=== PATIENT | female | born 1955 | race American Indian/Alaskan Native ===

== ENCOUNTER 2025-07-31 06:57 | Emergency (ER) | payer MEDICARE, SELFPAY ==
--- NOTE | ~2025-07-31 | XR_ITS ---
EXAMINATION: XR WRIST, RIGHT CLINICAL INFORMATION: FELL, INJURED R WRIST COMPARISON: None available. TECHNIQUE: PA, lateral, and oblique views of the right wrist. FINDINGS: There is a transverse oriented comminuted cortical disruption with volume loss centered in the distal metaphysis of the radius. No extension into the articular surface. Degenerative changes in the radiocarpal joints and first carpometacarpal joints. No metallic or radiopaque foreign body. No lytic or blastic lesions. No subcutaneous emphysema. XR/XR wrist RT min 3V IMPRESSION: Comminuted impacted fracture distal metaphysis of the right radius. Electronically signed by: Sergio Robbins MD 07/31/2025 07:42 AM EST
[2025-07-31 07:06] VITALS: BP 220/110; PULSE 96; RESP 18; O2SAT 96; BMI 28.3
--- NOTE | 2025-07-31 07:39 | ED.EXTPRO ---
HPI - Extremity Problem General Chief complaint: Extremity Injury, Upper Stated complaint: Injury Time Seen by Provider: 07/31/25 07:14 Source: patient Mode of arrival: ambulatory Limitations: no limitations History of Present Illness HPI Narrative: This is a 69 years old the patient presented to the emergency department with a chief complaint of right wrist pain she tripped and fell she is complaining of the pain in the right wrist, she fell last night she was walking the dog, no other injury no head injury no neck injury MD Complaint: extremity pain Onset (ago): day(s) (1) Pain Consistency: constant Location: right and upper extremity (wrist) Quality: aching Radiation: none Related Data Previous Rx's ?Medication ?Instructions ?Recorded oxycodone 5 mg tablet 5 mg PO Q6H PRN pain #15 tabs 07/31/25 oxycodone 5 mg tablet 5 mg PO Q6H PRN pain #15 tabs 07/31/25 Allergies Allergy/AdvReac Type Severity Reaction Status Date / Time No Known Allergies Allergy Verified 07/31/25 07:09 Review of Systems Constitutional: Constitutional: Reports no additional constitutional complaints Cardiovascular: Cardiovascular: Reports no additional cardiovascular complaints [facility] Past Medical History Attestation statement: The following information was validated with the patient. Social History Social History Smoked in Last 30 Days: Yes Use of substances other than those prescribed or required for medical reasons: No Advance Directives: No Advance Directives Information Provided: Yes Do you have a plan to hurt others: No Plan Physical Exam Exam: Exam: No acute distress Vital Signs: Vital Signs: Last Vital Signs Temp 98.2 F 07/31/25 08:05 Pulse 94 07/31/25 08:05 Resp 16 07/31/25 08:05 BP 180/90 H 07/31/25 08:05 Pulse Ox 96 07/31/25 08:05 O2 Del Method Room Air 07/31/25 08:05 BMI result Body Mass Index 28.3 Vital signs reviewed hypertension noted Const: General: cooperative Nutritional Appearance: well nourished Orientation/consciousness: patient oriented x3 HEENT: Head: Yes normal to inspection General nose exam: Normal external nose present Neck: Neck: Yes normal visual inspection Chest: Chest palpation & inspection: normal inspection of the chest Resp: Effort & Inspection: normal respiratory effort Auscultation: clear to auscultation bilaterally Cardio: Jugular venous distension: no JVD Rate: regular rate Rhythm: regular rhythm GI: Inspection: Yes normal to inspection Palpation (GI): Soft to palpation, not firm and nontender Auscultation: normal bowel sounds Skin: General skin exam: no rashes or lesions noted and elasticity normal Neuro: General: patient oriented x3 Cranial nerves: Yes CN's II-XII intact bilaterally Extrem: Other: She has tenderness swelling in the right wrist decreased range of motion Course Reevaluation(s) Reevaluation #1: first prescription for oxycodone did not go throught I sent another one Medications Administered Discontinued Medications Generic Name Dose Route Start Last Admin Trade Name Freq PRN Reason Stop Dose Admin Acetaminophen 975 mg 07/31/25 07:48 07/31/25 07:52 Acetaminophen 325 Mg Tablet PO 07/31/25 07:49 975 mg ONCE ONE Administration Oxycodone HCl 5 mg 07/31/25 07:48 07/31/25 07:52 Oxycodone Hcl Immed Release 5 Mg Tablet PO 07/31/25 07:49 5 mg ONCE ONE Administration Medical Decision Making Medical Decision Making MDM Narrative: Patient presented after a fall last night complaining of right wrist pain we will obtain imaging Differential Diagnosis Differential Diagnoses: The differential diagnosis associated with the presentation includes Wrist fracture/dislocation/ Admission/Observation Consideration of admission/observation: Escalation of care including admission/observation considered Independent Interpretation I performed an independent interpretation of an: Plain X-Ray Interpretation: X-ray was reviewed interpreted by me as distal radius fracture Procedures Orthopedic Splinting/Casting wrist fx: Side: right Upper Extremity Injury Location: upper arm (rt wrist) Upper Extremity Immobilizer: sugar tong splint Additional Comments: I placed OCL splint sugar tongue rt wrist Discharge Plan Discharge Clinical Impression: Fracture of distal end of radius Patient Disposition: Home, Self-Care Instructions: Wrist Fracture in Adults (ED) Additional Instructions: Keep your splint on, follow-up with orthopedic call and make an appointment, Prescriptions: New oxycodone 5 mg tablet 5 mg PO Q6H PRN (Reason: pain) Qty: 15 0RF Rx Instructions: partial filing upon pt request; Partial Fill upon patient request. oxycodone 5 mg tablet 5 mg PO Q6H PRN (Reason: pain) Qty: 15 0RF Rx Instructions: partial filing upon pt request; Partial Fill upon patient request. Referrals: Leonel Walter MD [Physician, Orthopedics] - 08/04/25 Interventions: ED Discharge Assessment Last Done: 07/31/25 08:05 Discharge Date/Time: 07/31/25 08:09 Print Language: Danish
[2025-07-31 07:42] VITALS: BP 180/90; PULSE 94; RESP 16; TEMP 36.8; O2SAT 96
[2025-07-31] MEDS: oxyCODONE HCl Immed Release 5 MG TABLET PO (07:52)
--- OUTSIDE RECORDS SUMMARY | 2025-07-31 07:58 | XMS_ITS | Patient Health Record ---
[facility] Address [address] [place] [id number] Care Team Providers Care Mortgage Sales Manager Name Role Phone Bassem Christine Jr [phone] Reason For Referral No Information Plan Of Treatment No Information
--- OUTSIDE RECORDS SUMMARY | 2025-07-31 07:58 | XMS_ITS | Clinical Summary ---
Author Organization [facility] Address [address] [place] [id number] Phone Care Team Providers Care Sports Athletic Trainer Name Role Phone Rosana Lamas LEGAL TECHNICIAN Unavailable [phone] Pcp, Unknown Primary Care Provider Unavailabl e Allergies No known active allergies Medications ibuprofen (ADVIL,MOTRIN) 200 MG tablet Take 600 mg by mouth 5 (five) times a day. Active cyclobenzaprine (FLEXERIL) 5 MG tablet TAKE 1 TABLET (5 MG TOTAL) BY MOUTH 3 (THREE) TIMES A DAY NEEDED FOR MUSCLE SPASMS. 21 tablet 10/30/2017 Active Immunizations Immunization Administration Dates Next Due COVID-19 (Pre-07/09) Pfizer Vaccine, mRNA, PF ,01/17/2021 INFLUENZA, SPLIT VIRUS, TRIVALENT W/ PRESERVATIV E IM 06/24/2014 Influenza trivalent preservative free intraderma l 06/27/2013 Family History Medical History Relation Comments Stroke Father 2 Diabetes mellitus Sibling 3 Stroke Sibling 3 Relation Status Comments Father 1 Father 2 Sibling 1 Sibling 2 Sibling 3 Social History Tobacco Use Types Packs/Day Years Used Date Smoking Tobacco: Every Day Cigarettes Smokeless Tobacco: Never Alcohol Use Standard Drinks/Week Comments Yes 0 (1 standard drink = 0.6 oz pur e alcohol) weekends Education Answer Date Recorded Are you interested in more education? Not on rose e 01/12/2023 Are you concerned about learning? Not on file 01/12/2023 No 01/12/2023 No 01/12/2023 Digital Access Answer Date Recorded No 02/10/2023 No 02/10/2023 Reliable internet access at home? Not on file 02/10/2023 Device with a working camera? Not on file Comments Unknown Sex and Gender Information Value Date Recorded Sex Assigned at Not on file Legal Sex Female 9:55 PM EDT Gender Identity Not on file Sexual Orientation Not on file Last Filed Vital Signs Vital Sign Reading Time Taken Comments Blood Pressure 148/74 10/16/2017 1:56 PM EST Pulse 84 10/16/2017 1:56 PM EST Temperature 36.7 C (98 F) 01/19/2017 10:52 AM EDT Respiratory Rate 16 10/16/2017 1:56 PM EST Oxygen Saturation 97% 10/16/2017 1:56 PM EST Inhaled Oxygen Concentration - - Weight 73.3 kg (161 lb 9.6 oz) 10/16/2017 1:56 P M EST Height 161.3 cm (5' 3.5 ) 10/16/2017 1:56 PM EST Body Mass Index 28.18 10/16/2017 1:56 PM EST Plan of Treatment Health Maintenance Due Date Last Done Comments Adult Td,Tdap Booster 1955 LIPID PANEL 1955 DEPRESSION SCREENING 1967 SMOKING Hx and SMOKELESS TOBACCO SCREENING 1968 HEPATITIS C SCREENING 1973 PNEUMOCOCCAL VACCINES (50+ years) (1 of 2 - PCV) 1974 MAMMOGRAM 1995 COLOGUARD 2000 COLONOSCOPY 2000 COLORECTAL CANCER SCREENING 2000 FIT TEST 2000 FOBT 2000 SIGMOIDOSCOPY 2000 VIRTUAL COLONOSCOPY 2000 ZOSTER VACCINES (1 of 2) 2005 OSTEOPOROSIS SCREENING INITI AL (ONE-TIME) 2020 INFLUENZA VACCINE (#1) 2025 4, 06/27/2013 COVID-19 VACCINE (3 - 2024-2 6 season) 2025 02/07/2021, 01/17/2021 RSV VACCINE (1 - 1-dose 75+ series) 2030 HEPATITIS A VACCINES Aged Out No long er eligible based on patient's age to complete this topic HIB VACCINES Aged Out No longer eligi ble based on patient's age to complete this topic IPV VACCINES Aged Out No longer eligi ble based on patient's age to complete this topic MENINGOCOCCAL VACCINES (ACWY) Aged Out No longer eligible based on patient's age to complete this topic MENINGOCOCCAL VACCINES (B) Aged Out N o longer eligible based on patient's age to complete this topic Medical Devices Not on file Insurance [employer] [facility] TOTAL CHOICE INDEMNITY [place] [employer] [facility] TOTAL CHOICE INDEMNITY [employer] [facility] TOTAL CHOICE INDEMNITY [place] [employer] CHO[employer] INDEMNITY [place] TOTAL CHOICE INDEMNITY [address] [place], [place] [address] [facility] TOTAL CHOICE INDEMNITY [address] [place], [place] [address] [facility] TOTAL CHOICE INDEMNITY Care Teams Sports Athletic Trainer Relationship Specialty Start Date End Date Pcp, Unknown PCP - General 04/28/21 Rosana Lamas NP [email or web address] Historical LMR Provider 07/03/17 Additional Source Comments The information contained in this document represents components of the legal health record. It is not the complete legal health record.[facility]
[2025-07-31 08:05] VITALS: BP 180/90; PULSE 94; RESP 16; TEMP 36.8; O2SAT 96
--- NOTE | 2025-07-31 08:10 | PC.NURSE ---
Patient presented to Ed after fall c/o right wrist pain rated 10/10 +CMS limited ROM Patient was walking dog when she tripped on the curb and stuck her right arm out to catch her fall Xray confirms distal radius fx in right wrist Patient medicated with oxy and tylenol per MAR Provider soft casted right wrist and sling applied Patient up for discharge has follow up with ortho
== END 2025-07-31 08:09 | disposition home or self-care (01) ==
PROVIDERS: Emergency Provider Emergency Medicine
DX: S52.501A Unspecified fracture of the lower end of right radius, initial encounter for closed fracture (principal); W18.30XA Fall on same level, unspecified, initial encounter; Y93.9 Activity, unspecified; Y92.9 Unspecified place or not applicable; Y99.9 Unspecified external cause status; M25.531 Pain in right wrist
CPT/HCPCS: 73110; 99283; 99284

== ENCOUNTER → 2025-07-31 07:38 | Outpatient (BNV) | payer MEDICARE, SELFPAY | PROVIDERS: Emergency Provider Emergency Medicine; Visit Provider Radiology Diagnostic Radiology | DX: M25.532 Pain in left wrist (principal) | CPT/HCPCS: 73110 ==

== ENCOUNTER 2025-08-04 13:06 | Outpatient (REF) | payer MEDICARE, SELFPAY ==
--- NOTE | ~2025-08-04 | XR_ITS ---
EXAMINATION: XR WRIST, LEFT CLINICAL INFORMATION: M25.532 - Pain in left wrist COMPARISON: None available. TECHNIQUE: PA, lateral, and oblique views of the left wrist. FINDINGS: There is diffuse osteopenia. There is subtle lucency along the articular surface of the distal radius proximal to the scaphoid side of lunate. There is scapholunate interval widening. There are no other abnormalities. XR/XR wrist LT min 3V IMPRESSION: There is subtle lucency in the distal radial subchondral bone proximal to the scaphoid side of lunate could be related to combination of trabecular pattern and osteopenia. Correlate for history that could suggest a fracture. Scapholunate interval widening raises concern of the scapholunate ligament tear. Electronically signed by: David Coombs MD 08/04/2025 02:45 PM [facility]
--- NOTE | ~2025-08-04 | XR_ITS ---
EXAMINATION: XR WRIST, RIGHT CLINICAL INFORMATION: M25.531 - Pain in right wrist , follow-up fracture COMPARISON: X-ray from 4 days earlier TECHNIQUE: PA, lateral, and oblique views of the right wrist. FINDINGS: Again seen is transverse fracture across the distal metaphysis of the right radius with buckling of the cortex and extension into the proximal end of the distal radioulnar joint and ulnar side of the distal radial articular surface. There is increasing diffuse osteopenia. There is no change in alignment. XR/XR wrist RT min 3V IMPRESSION: Developing disuse osteopenia and otherwise stable distal right radial fracture. Electronically signed by: David Coombs MD 08/04/2025 02:39 PM [facility]
--- OUTSIDE RECORDS SUMMARY | 2025-08-05 11:25 | XMS_ITS | Clinical Summary ---
Author Organization [facility] Address [address] [place] [id number] Phone Care Team Providers Care Clam Sorter Name Role Phone Rosana Lamas CIGARETTE PACKAGE EXAMINER Unavailable [phone] Pcp, Unknown Primary Care Provider Unavailabl e [...] topic Medical Devices Not on file Insurance [employer] [facility] TOTAL CHOICE INDEMNITY [employer] CHO[employer]OTAL [employer]OTAL CHOICE INDEMNITY [address] [place], [place] [address] [facility] TOTAL CHOICE INDEMNITY Care Teams Clam Sorter Relationship Specialty Start Date End Date Pcp, Unknown PCP - General 04/28/21 Rosana Lamas NP Historical LMR Provider 07/03/17 Additional Source Comments The information contained in this document represents components of the legal health record. It is not the complete legal health record.[facility]
--- OUTSIDE RECORDS SUMMARY | 2025-08-05 11:26 | XMS_ITS ---
Author Organization Unknown ENCOUNTERS Encounter Performer Location Date Diagnosis Diagnosis Status Pre Admit [facility] ED Physician [address] [phone] *Note: Encounters from your own facility or health system may be excluded. Allergies, Adverse Reactions, Alerts Allergen Type Severity Identification Date Medications Name Date Quantity Days Supplied GPI Number
--- OUTSIDE RECORDS SUMMARY | 2025-08-05 11:26 | XMS_ITS | Patient Health Record ---
Author Organization [facility] Address [address] [place] [id number] Care Team Providers Care Gold Nib Grinder Name Role Phone Bassem Christine Jr Reason For Referral No Information Plan Of Treatment No Information
== END 2025-08-04 13:07 | disposition home or self-care (01) ==
LOC: HO.HOSX 13:06
PROVIDERS: Visit Provider Orthopaedic Surgery
DX: S62.101A Fracture of unspecified carpal bone, right wrist, initial encounter for closed fracture (principal); S62.102A Fracture of unspecified carpal bone, left wrist, initial encounter for closed fracture; S52.501A Unspecified fracture of the lower end of right radius, initial encounter for closed fracture; S52.502A Unspecified fracture of the lower end of left radius, initial encounter for closed fracture; W01.0XXA Fall on same level from slipping, tripping and stumbling without subsequent striking against object, initial encounter; Y93.K1 Activity, walking an animal
CPT/HCPCS: 73110; 99202

== ENCOUNTER 2025-08-04 13:06 | Outpatient (AMB) | payer MEDICARE, SELFPAY ==
[2025-08-04 13:53] VITALS: BMI 28.3
--- NOTE | 2025-08-04 13:53 | MHC.OFFVIS ---
Vital Signs 08/04/25 13:53 Height 5 ft 4 in Weight 165 lb BMI 28.3 Intake Visit Reasons: ED f/u Fracture of distal end of radius Intake Note: Mary 69 yr old right hand dominant female who is retired, presents today with her Minh, for a fracture care visit for her right wrist pain. Patient seen in [facility] ED on 07/30/25, she tripped and fell in her apartment parking lot while walking her dog. Seen in ED the following day due to increase pain and swelling. Xrays were taken and a fracture was confirmed. Patient was splinted and referred to orthopedics hand surgeon for further evaluation. Patient denies numbness or tingling. Patient also mentioned she is now having increase pain in her left wrist. Allergies No Known Allergies Allergy (Verified 08/04/25 14:05) [facility] ED f/u Fracture of distal end of radius: Details: Mary 69 yr old right hand dominant female who is retired, presents today with her Minh, for a fracture care visit for her right wrist pain. Patient seen in [facility] ED on 07/30/25, she tripped and fell in her apartment parking lot while walking her dog. She also fell onto her left wrist and complains of left wrist pain today. The Patient denies numbness or tingling. She is seen today with her She is a smoker [facility] Social History (Updated 08/04/25 @ 14:07 by Vane Hdez [facility] Patient Tobacco Use Status: Current everyday Tobacco user Tobacco use type: Cigarette Cigarettes Per Day: 1 Years Smoked: 40 Current occupational status: retired Current occupation: right hand Physical Exam Vital Signs: BMI result Body Mass Index 28.3 Const General: cooperative, healthy appearing and no acute distress Orientation/consciousness: oriented to person and oriented to place HEENT Head: Yes normocephalic and Yes atraumatic Eyes EOM: EOMs intact bilaterally Resp Effort & Inspection: normal respiratory effort and able to speak in complete sentences Cardio Jugular venous distension: no JVD Skin General skin exam: turgor normal Rashes: no rashes Neuro General: oriented to person and oriented to place Extrem Other: Evaluation of bilateral Upper Extremity: Neuro: Median, ulnar, radial nerves motor and sensory grossly intact. Bilaterally. Vascular: Cap refill brisk. The right distal radius is tender to palpation. She has swelling and volar ecchymosis. No tenderness about the right elbow or to proximal forearm squeeze. She can make a weak fist and extend all of her digits. No lacerations or evidence of open fracture. The left distal radius is tender to palpation.? She has swelling and volar ecchymosis.? No tenderness about the right elbow or to proximal forearm squeeze.? She can make a weak fist and extend all of her digits.? No lacerations or evidence of open fracture. Radiographs: Three views of bilateral wrists were taken today and reviewed by me today in clinic. Right wrist: She has a transverse metaphyseal fracture of the right distal radius. On the lateral she has got about a 10-11 degree apex volar deformity seen on the lateral view. Left wrist: She has a minimally displaced left distal radius fracture. There is a fracture line extending from the distal radial articular surface at the lunate facet that then extends transversely to the lower radial styloid. No displacement on the PA view. On the lateral we see some mild dorsal comminution with about 2 degrees of dorsal tilt of the articular surface on the lateral Psych Appearance: grossly normal Affect: normal affect Attitude: cooperative Office Procedures AMB Fracture Care Details: Fracture care for the left, I repeat left distal radius [id number] She also has a right distal radius fracture which will be going to surgery. A mentioning this here so that there is no confusion about billing for the left for non operative treatment and then the right for operative treatment. Thank you Fracture Billing Code: Fracture Billing Code Assessment & Plan Assessment & Plan (1) Wrist fracture, bilateral: Code(s): S62.101A - Fracture of unspecified carpal bone, right wrist, initial encounter for closed fracture; S62.102A - Fracture of unspecified carpal bone, left wrist, initial encounter for closed fracture Category: Medical Plan 1. Right distal radius fracture, displaced Date of injury 07/31/2025 after fall while dog walking I educated the patient about this injury We discussed operative and non operative treatment options and I am recommending surgery. The patient agrees that she wishes to have surgery. The risks and benefits of operative treatment were discussed with the patient and the patient wishes to proceed with surgery. These risks include, but are not limited to risk of damage to blood vessels, nerves, tendons, infection, recurrence, incomplete relief of preoperative symptoms, persistent pain, possible need for further surgery and the risks associated with regional blocks and anesthesia. The plan is to take the patient to the operating room early next week for the following procedures: 1. Right distal radius open reduction internal fixation 2. [ ] All of the preoperative paperwork including the consent was filled out today. All the patient's questions were answered. The patient understands that they will be contacted by our materials scheduler soon to schedule this procedure She was placed in a right fiberglass splint. She denies having any heart lung kidney problems asthma or diabetes.? She is a smoker. 2. Left distal radius fracture, minimally displaced Date of injury 07/31/2025 after a fall while dog walking I educated her about this injury We discussed operative and non operative treatment options. I am hopeful that we can treat this non operatively. Because she is having surgery on the right wrist I am going to try to place this in a left Velcro wrist splint. I talked about the importance of activity modification and not doing anything heavy at all with the left hand, as that would risk further displacement and possible need for surgery. She may remove the left wrist splint for showering We will need follow up radiographs on this wrist in a week or 2. Scribed for Cecilia Joseph MD by Maryuri Rea medical assistant cardiology, on 08/04/2025 at 2:57 PM, EST. Orders: Orders XR wrist LT min 3V Today M25.532 - Pain in left wrist XR wrist RT min 3V Today M25.531 - Pain in right wrist Medications: Discontinued oxycodone partial filing upon pt request; Partial Fill upon patient request. Discontinued Reason: Patient Completed Course 5 mg PO Q6H PRN 15 tabs 0RF pain oxycodone partial filing upon pt request; Partial Fill upon patient request. Discontinued Reason: Patient Completed Course 5 mg PO Q6H PRN 15 tabs 0RF pain Coding Level of Care Code New Pt Level 5 (62666) Diagnoses Wrist fracture, bilateral S62.101A; S62.102A CPT Codes Fracture Care - Fracture Billing Code: Fracture Billing Code ([id number])
== END 2025-08-04 15:30 | disposition home or self-care (01) ==
LOC: HO.HOS 13:07
PROVIDERS: Visit Provider Orthopaedic Surgery
DX: S62.101A Fracture of unspecified carpal bone, right wrist, initial encounter for closed fracture (principal); S62.102A Fracture of unspecified carpal bone, left wrist, initial encounter for closed fracture
CPT/HCPCS: 99204

== ENCOUNTER → 2025-08-04 14:28 | Outpatient (BNV) | payer MEDICARE, SELFPAY | PROVIDERS: Visit Provider Radiology Diagnostic Radiology | DX: M25.532 Pain in left wrist (principal); S52.501A Unspecified fracture of the lower end of right radius, initial encounter for closed fracture; M85.841 Other specified disorders of bone density and structure, right hand | CPT/HCPCS: 73110 ==

== ENCOUNTER 2025-08-10 06:42 | Day surgery (SDC) | payer MEDICARE, SELFPAY ==
--- NOTE | 2025-08-05 09:52 | P.CONAN_ITS ---
Documented by User: Dunia Fritz NP 08/05/25 09:55 HPI - Anesthesia Eval Consult details Narrative: 69yo F for Right Radius Distal Fracture ORIF No medical hx listed. No records at [facility] or [facility] for review. No rx on external list. PMF Active Problems Active Problems: All Active Problems Wrist fracture, bilateral (Acute) Past Medical History Medical History Smoker Surgical History Surgical History Hx of spinal fusion Hx of hysterectomy Social History Social History Are you a primary patient care technician to a significant other at home: No Do you presently have visiting nurse or other home services: No Patient Tobacco Use Status: Current everyday Tobacco user Tobacco use type: Cigarette Cigarettes Per Day: 1 Years Smoked: 40 Smoked in Last 30 Days: Yes Patient Interested in Nicotine Replacement: No Substance Use Frequency: Daily Have you been hit, kicked, punched, or otherwise hurt by someone within the past year? If so, by whom?: No Are you DNR?: No Advance Directives: No Advance Directives Information Provided: Yes Current occupational status: retired Current occupation: right hand Meds Allergies Allergy/AdvReac Type Severity Reaction Status Date / Time No Known Allergies Allergy Verified 08/10/25 07:24 Assessment and Plan Assessment Anesthesia Assessment: Chart Reviewed Documented by User: Bre Calzada MD 08/10/25 07:59 [facility] Past Medical History Medical History Smoker Family History Family history of problems with anesthesia: No Surgical History Surgical History Hx of spinal fusion Hx of hysterectomy History of Problems with Anesthesia: No Social History Social History Are you a primary patient care technician to a significant other at home: No Do you presently have visiting nurse or other home services: No Patient Tobacco Use Status: Current everyday Tobacco user Tobacco use type: Cigarette Cigarettes Per Day: 1 Years Smoked: 40 Smoked in Last 30 Days: Yes Patient Interested in Nicotine Replacement: No Substance Use Frequency: Daily Have you been hit, kicked, punched, or otherwise hurt by someone within the past year? If so, by whom?: No Are you DNR?: No Advance Directives: No Advance Directives Information Provided: Yes Current occupational status: retired Current occupation: right hand [employer] Allergies Allergy/AdvReac Type Severity Reaction Status Date / Time No Known Allergies Allergy Verified 08/10/25 07:24 Exam Airway Mallampati Class: III (POOR DENTITION) TM Dist: >3cm Neck ROM: Limited Heart: RRR Lungs: CTA Assessment and Plan Assessment Anesthesia Assessment: Anesthesia Plan Discussed Final Anesthetic Review Family History of Problems with Anesthesia: No History of Problems with Anesthesia: No NPO: Yes ASA Class: II Final Preanesthetic Review: No Changes in Pt Med Stat, Meds/Allgs Chart Reviewed, Consent Obtained/Reviewed and Anes Risks/Benef Reviewed Patient Risk: Intermediate (SMOKER, WHEEZY) Procedure Risk: Low Anesthetic Plan Anesthetic Plan: GA, Regional Block and Agree w/ Assess. and Plan Disposition: Standard PACU
--- NOTE | ~2025-08-10 | FL_ITS ---
EXAMINATION: FL GUIDANCE ONLY HISTORY: radius distal fracture ORIF COMPARISON: Correlation is made to plain films of the right wrist dated 08/04/2025. TECHNIQUE: Fluoroscopy time: 50.12 seconds. Cumulative Dose: 1.4862 mGy. DAP: 0.0898 Gycm2 Images: 3. FINDINGS: Fluoroscopic spot films of the right wrist demonstrate internal fixation of the previously seen fracture of the distal radial metaphysis with a sideplate and multiple orthopedic screws. FL/FL guidance in OR IMPRESSION: Fluoroscopy during procedure. Please see procedure report for additional information. Electronically signed by: Augusto Rubalcava MD 08/10/2025 11:36 AM [facility]
[2025-08-10 07:01] VITALS: BMI 28.2
[2025-08-10 07:03] VITALS: BP 154/84; PULSE 96; RESP 18; TEMP 36.8; O2SAT 97
[2025-08-10] MEDS: Lactated Ringers 1,000 ML 100 ML IVCONT (07:06)
[2025-08-10] MEDS: Albuterol Sulfate (0.083%) 2.5 MG/3 ML VIAL.NEB INHALE (07:36)
--- NOTE | 2025-08-10 08:41 | MHC.SHP ---
Pre-Procedural Eval Section A - 24 Hr Update-Section A only Date of Service: 08/10/25 The patient is an INPATIENT: No Changes since office visit: No Cold of Flu in the past 2 weeks, No New Medical Problems, No Changes in Medication and No Patient answered all questions The patient has been examined within 24 hours of the surgical procedure. The History & Physical has been completed within 30 days and I have reviewed it.: Yes Section B - Complete if H&P > 30 days Chief Complaint: Unspecified fracture of the lower end of right Allergies: Allergies Allergy/AdvReac Type Severity Reaction Status Date / Time No Known Allergies Allergy Verified 08/10/25 07:24 Plan I have reviewed the history and physical and performed a pertinent physical examination on my patient. No changes have occurred unless specified. Time Spent With Patient Time: Total time managing care of this patient today ____ minutes.
--- NOTE | 2025-08-10 08:42 | P.OP_ITS ---
Operative Note Operative Note Date of Service: 08/10/25 Narrative: Operative Note Narrative: Preop diagnosis: 1. Right Distal radius fracture Postop diagnosis: Same Procedure: 1. Right Distal radius fracture open reduction internal fixation, extra- articular Surgeon: Cecilia Joseph MD Inspector Screen Printing: None Anesthesia: General anesthesia plus regional block Findings: Right distal radius fracture Implants: A 3 hole Accu Med volar locking plate, with 4 X 2.3 mm locking pegs/screws, and 3 3.5 mm cortical screws Tourniquet time: 34 minutes EBL: 5.0 ml Specimen: None Drains: None Complications: None Disposition: Brought to the recovery room in stable condition Plan: Follow-up in 10-14 days for wound check, suture removal and postop radiographs The patient will be placed in a volar wrist splint. Encouraged no lifting of anything heavier than a cell phone. Please encourage active and passive range of motion of the digits. Follow-up at 4-5 weeks postop for repeat radiographs. Please also remember to obtain pre clinic radiographs of the opposite wrist which is also fractured. Indications: The patient is a 69 year old woman with right distal radius fracture . The risks and benefits of operative treatment, including but not limited to risk of damage to blood vessels, nerves, tendons, infection, recurrence, persistent pain or numbness, incomplete resolution of preoperative symptoms, or need for further surgery were discussed with the patient and they wished to proceed with surgery. Procedure: Once consent was obtained patient was brought back to the operating suite and placed in the operating table in a supine position. A regional block was performed by the anesthesia team. Perioperative antibiotics and anesthesia was administered by the anesthesia team. A tourniquet was applied to the proximal aspect of the right upper extremity and the limb was prepped and draped in a standard surgical fashion. The limb was elevated exsanguinated with Esmarch bandage and the tourniquet inflated to 250 mm of mercury for a total tourniquet time of 34 minutes. The FluoroScan was used throughout the case to assess our reduction, and facilitate implant placement. A gentle closed reduction was 1st performed on the patient's right distal radius fracture. Was assessed radiographically before proceeding with the reduction internal fixation. I then made an 8 cm longitudinal incision over the distal aspect of the flexor carpi radialis tendon. The incision was made through the skin to the subcutaneous tissue using a 15. Blade. Then carefully dissected down to flexor carpi radialis tendon she tenotomy scissors. The FCR tendon sheath was then incised longitudinally using tenotomy scissors under direct visualization. The FCR tendon was then retracted ulnarly. I then made a longitudinal incision in the volar forearm fascia through the floor of FCR tendon sheath using tenotomy scissors under direct visualization. I identified the interval between the radial artery and the flexor tendons. This interval was developed further with my index finger, releasing some of the muscular fibers of the flexor pollicis longus. A dull weatlander retractor was then placed. I then created an ulnarly based flap of the pronator quadratus by releasing the radial and distal edges using a 15. Blade. A Valdivia elevator was used to elevate the pronator quadratus from the volar surface of the distal radius. This then revealed to us our distal radius fracture. An open reduction was then performed on our distal radius fracture. I then placed a short narrow 3 hole Accu Med volar locking plate on the volar surface of the distal radius. I placed a single K-wire through the distal aspect of the plate and into the distal radius. This was assessed using fluoroscopic images. I was satisfied with the placement of our plate. I then placed 4 X 2.3 mm locking screws/pegs in the distal aspect of the plate and distal radius by 1st drilling bicortically with a 2.0 mm drill bit, measuring with a depth gauge, and placing the appropriate length locking screws/pegs. The placement of our plate and screws was then assessed again using fluoroscopic images. The once satisfied with the placement of the volar locking plate and screws on the distal aspect of the distal radius, the plate was then reduced to the shaft of the radius. I then placed 3 X 3.5 mm cortical screws to the proximal aspect of the plate and into the shaft of the radius. This was done by 1st drilling bicortically with a 2.8 mm drill bit, measuring with a depth gauge, and placing the appropriate length screw. Final radiographs were then obtained. The DRUJ was assessed and found to be stable on exam. I was satisfied with our reduction and placement of all implants. At this point the wound was irrigated with normal saline. The pronator quadratus was reduced back over the volar locking plate using some 3-0 Vicryl suture material. The tourniquet was then deflated and hemostasis was obtained with a brief period of local pressure and bipolar monopolar electrocautery. The subcutaneous layer was then reapproximated using some 4-0 Vicryl suture, and the skin edges were reapproximated using some 5 0 Prolene suture. The wound was then infiltrated with some 1% lidocaine with epinephrine postop pain control. A sterile dressing and a short dorsal splint allowing for active flexion and extension of the digits was applied. The patient appears to have tolerated the procedure well and with no complications. All digits were well vascularized conclusion of the case.
[2025-08-10 10:28] VITALS: BP 184/76; PULSE 92; RESP 18; TEMP 36.9; O2SAT 100
[2025-08-10 10:33] VITALS: BP 140/71; PULSE 87; RESP 10; O2SAT 98
[2025-08-10 10:43] VITALS: BP 154/77; PULSE 86; RESP 15; O2SAT 97
[2025-08-10 11:05] VITALS: BP 162/72; PULSE 84; RESP 12; TEMP 36.4; O2SAT 96
== END 2025-08-10 11:23 | disposition home or self-care (01) ==
PROVIDERS: Visit Provider Orthopaedic Surgery
PROC: (CPT 25600; principal; 2025-08-10 08:30)
DX: S62.101A Fracture of unspecified carpal bone, right wrist, initial encounter for closed fracture (principal); M25.531 Pain in right wrist; S62.102A Fracture of unspecified carpal bone, left wrist, initial encounter for closed fracture; M25.532 Pain in left wrist; W01.0XXA Fall on same level from slipping, tripping and stumbling without subsequent striking against object, initial encounter; Y93.K1 Activity, walking an animal; Y92.481 Parking lot as the place of occurrence of the external cause; Y99.9 Unspecified external cause status; Z98.1 Arthrodesis status; Z90.710 Acquired absence of both cervix and uterus; F17.210 Nicotine dependence, cigarettes, uncomplicated
CPT/HCPCS: 25600; C1713; J0131; J0665; J0690; J1100; J2003; J2004; J2250; J2371; J2405; J2704; J3010

== ENCOUNTER → 2025-08-10 06:42 | Outpatient (BNV) | payer MEDICARE, SELFPAY | PROVIDERS: Visit Provider Orthopaedic Surgery | DX: S52.551A Other extraarticular fracture of lower end of right radius, initial encounter for closed fracture (principal) | CPT/HCPCS: 25607 ==

== ENCOUNTER 2025-08-26 08:30 | Outpatient (REF) | payer MEDICARE, SELFPAY ==
--- NOTE | ~2025-08-26 | XR_ITS ---
EXAMINATION: XR WRIST, RIGHT CLINICAL INFORMATION: M25.531 - Pain in right wrist COMPARISON: X-ray 08/04/2025 TECHNIQUE: PA, lateral, and oblique views of the right wrist. FINDINGS: Status post internal fixation of a distal radial fracture. Intact hardware. No findings to suggest hardware loosening. Decreased conspicuity of the fracture plane. No new acute fractures. Bone mineralization is decreased. Mild soft tissue swelling. XR/XR wrist RT min 3V IMPRESSION: Healing distal radial fracture status post internal fixation Electronically signed by: Usama Olmedo MD 08/27/2025 10:37 AM [facility]
--- NOTE | ~2025-08-26 | XR_ITS ---
EXAMINATION: XR WRIST 3 OR MORE VIEWS LEFT HISTORY: M25.532 - Pain in left wrist COMPARISON: Comparison is made with the prior examination dated 08/04/2025. FINDINGS: Three views of the left wrist are submitted. The bones are osteopenic. There is a healing comminuted intra-articular fracture of the distal radius with a small amount of callus formation noted. There is no fracture or dislocation. The joint spaces are preserved. The soft tissues are unremarkable. XR/XR wrist LT min 3V IMPRESSION: Osteopenia. Healing comminuted intra-articular fracture of the distal radius. Electronically signed by: Augusto Rubalcava MD 08/26/2025 02:32 PM EST
== END 2025-08-26 08:31 | disposition home or self-care (01) ==
LOC: HO.HOSX 08:30
PROVIDERS: Visit Provider Orthopaedic Surgery
DX: S62.101A Fracture of unspecified carpal bone, right wrist, initial encounter for closed fracture (principal); S62.102A Fracture of unspecified carpal bone, left wrist, initial encounter for closed fracture
CPT/HCPCS: 73110

== ENCOUNTER 2025-08-26 13:33 | Outpatient (AMB) | payer MEDICARE, SELFPAY ==
--- NOTE | 2025-08-26 13:55 | MHC.OFFVIS ---
Intake Visit Reasons: PO RT distal radius ORIF 08/10/25 AR Intake Note: Mary is a 70 year old female who presents today for a post operative visit of right distal radius fracture ORIF, extra-articular on 08/10/25. Today patient reports that her right arm feels fine, she has complaints of left wrist pain. 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 Allergies No Known Allergies Allergy (Verified 08/26/25 14:00) HPI HPI PO RT distal radius ORIF 08/10/25 AR: Details: Mary is a 70 year old right hand dominant woman who returns S/P right distal radius ORIF, DOS: 08/10/25. She also has a left distal radius fracture from a fall, DOI: 07/30/25, which was managed conservatively. She says she is doing well in regards to her right wrist, and denies any pain. She complains of worsening pain in her left wrist. PFS Medical History Smoker Surgical History Hx of hammer toe correction Hx of spinal fusion Hx of hysterectomy Social History Are you a primary career technical education instructor to a significant other at home: No Do you presently have visiting nurse or other home services: No Patient Tobacco Use Status: Current everyday Tobacco user Tobacco use type: Cigarette Cigarettes Per Day: 1 Years Smoked: 40 Current occupational status: retired Current occupation: right hand Review of Systems Const All systems reviewed & are unremarkable except as noted in HPI and below Physical Exam Const General: no acute distress and alert Orientation/consciousness: patient oriented x3 Neuro General: patient oriented x3 Extrem Other: The patient was alert oriented and in no acute distress The incision is healing well with no erythema drainage or evidence of infection. Sutures removed and Steri-Strips applied Sensation is intact Cap refill is brisk Right wrist: She can make a fist and extend all her digits ~60 supination ~70 pronation The left distal radius is tender to palpation. She has swelling and volar ecchymosis.?No tenderness about the right elbow or to proximal forearm squeeze.?She can make a weak fist and extend all of her digits. Radiographs: Three views of bilateral wrists were taken today and reviewed by me today in clinic. Right wrist: She has a transverse metaphyseal fracture of the right distal radius with satisfactory fracture alignment and position of all implants Left wrist: She has a minimally displaced left distal radius fracture. There is a fracture line extending from the distal radial articular surface at the lunate facet that then extends transversely to the lower radial styloid. No displacement on the PA view. On the lateral we see some mild dorsal comminution with ~10 degrees of dorsal tilt of the articular surface on the lateral. No evidence of interval bony healing at this time. Psych Appearance: grossly normal Affect: normal affect Attitude: cooperative Assessment & Plan Assessment & Plan (1) Wrist fracture, bilateral: Code(s): S62.101A - Fracture of unspecified carpal bone, right wrist, initial encounter for closed fracture; S62.102A - Fracture of unspecified carpal bone, left wrist, initial encounter for closed fracture Category: Medical Plan Assessment & Plan: 1. Right distal radius fracture, S/P ORIF DOI: 07/30/25 DOS: 08/10/25 The patient appears to be doing well post-operatively I educated her about the post-operative course She was fitted for a velcro wrist splint, to be worn like a cast except for showering, for the next 3 weeks I discussed activity modifications, she is to lift nothing heavier than a cellphone for the next 4 weeks. They should also avoid any heavy impact activities, falls, or sports activities for the next 8 weeks She will perform gentle ROM exercises at home She should avoid any underwater activities She should gently massage about the incision site to reduce the risk of hypersensitivity 2. Left distal radius fracture, minimally displaced DOI: 07/30/25 Increased pain with a change in fracture alignment to about 10 degrees apex volar on the lateral since last visit. I educated her about this injury We discussed operative and non operative treatment options. I believe we can still treat this non operatively. She was placed in a short arm cast, to be worn for the next 3 weeks I discussed the importance of activity modifications, she is to lift nothing heavier than a cellphone for the next 4 weeks. They should also avoid any heavy impact activities, falls, or sports activities for the next 8 weeks I explained that she has been using her left wrist to do too much, and she needs to reduce the use of her wrist for the next few weeks to allow for healing. She will follow up in 4 weeks, with X-rays, 3V bilateral wrists, OOP Scribed for Cecilia Joseph MD by Maryuri Rea, lpn medical assistant, on 08/26/2025 at 2:10 PM, EST. Orders: Orders XR wrist RT min 3V Today M25.531 - Pain in right wrist XR wrist LT min 3V Today M25.532 - Pain in left wrist Scribe Plan - Not visible on output: Scribed for Cecilia Joseph MD by Tyler Phelps lpn medical assistant, on [ ] at [ ], EST. Coding Level of Care Code Global (13002) Diagnoses Wrist fracture, bilateral S62.101A; S62.102A
--- OUTSIDE RECORDS SUMMARY | 2025-08-26 20:57 | XMS_ITS | Clinical Summary ---
Author Organization [facility] Address [address] [place] [phone] Phone Care Team Providers Care Cyber Threat Analyst Name Role Phone Rosana Lamas TREE CARE FOREMAN Unavailable [phone] Pcp, Unknown Primary Care Provider Unavailabl [...] topic Medical Devices Not on file Insurance [employer] [facility] TOTAL CHOICE INDEMNITY [employer]OTAL [employer] INDEMNITY [address] [place], [place] [address] [facility] [employer]OTAL CHOICE INDEMNITY Care Teams Cyber Threat Analyst Relationship Specialty Start Date End Date Pcp, Unknown PCP - General 04/28/21 Rosana Lamas NP Historical LMR Provider 07/03/17 Additional Source Comments The information contained in this document represents components of the legal health record. It is not the complete legal health record.[facility]
--- OUTSIDE RECORDS SUMMARY | 2025-08-26 20:58 | XMS_ITS | Patient Health Record ---
Author Organization [facility] Address [address] [place] [id number] Care Team Providers Care Combination Man Name Role Phone Bassem Christine Jr Reason For Referral No Information Plan Of Treatment No Information
== END 2025-08-26 14:57 | disposition home or self-care (01) ==
LOC: HO.HOS 13:34
PROVIDERS: Visit Provider Orthopaedic Surgery
DX: S62.101A Fracture of unspecified carpal bone, right wrist, initial encounter for closed fracture (principal); S62.102A Fracture of unspecified carpal bone, left wrist, initial encounter for closed fracture
CPT/HCPCS: 99024

== ENCOUNTER → 2025-08-26 14:13 | Outpatient (BNV) | payer MEDICARE, SELFPAY | PROVIDERS: Visit Provider Radiology Diagnostic Radiology | DX: S52.501D Unspecified fracture of the lower end of right radius, subsequent encounter for closed fracture with routine healing (principal) | CPT/HCPCS: 73110 ==